=== PATIENT | male | born 1970 | race African-American/Black ===

== ENCOUNTER → 2020-04-15 | Outpatient (CLI) | payer BC | LOC: SJCVCIMAG 08:14 | PROVIDERS: ATTEND Internal Medicine | DX: I11.9 Hypertensive heart disease without heart failure (principal); I25.118 Atherosclerotic heart disease of native coronary artery with other forms of angina pectoris; E78.5 Hyperlipidemia, unspecified; Z95.5 Presence of coronary angioplasty implant and graft ==

== ENCOUNTER 2021-04-19 09:56 | Inpatient (IN) | payer BC ==
[~2021-04-19] VITALS: Ht 190.5 cm; Wt 113.9 kg
--- NOTE | ~2021-04-19 | EMS ---
[facility] [address] [place] [address] EMS Patient Care Report Name: GOYO NAVARRETE Room #: 219-P [facility] IN M.R.#: [id number] Admission: 04/19/21 Attend Phys: Slick Ledezma MD Discharge: 04/20/21 Date of : 68 Report #: [id number] THIS REPORT FOR: //name// Report Transmitted: 04/24/2021 11:06 EMS Care Summary [place], [place]/[facility] Incident [id number] @ 04/19/2021 09:02 Incident Location [address] [place] [address] [address] [place] [address] Patient GOYO NAVARRETE Male, 51 Years 1970 Patient Address [address] [place] [address] Patient History Hypertension (HTN),Cardiac - Stent, Patient Allergies No known allergies, Patient Medications Isosorbide, Valsartan, Amlodipine, Atorvastatin, Hydrochlorothiazide (Hctz), Metoprolol, Chief Complaint chest pain Disposition Transported No Lights/[place] Dispatch Reason Chest Pain (Non-Traumatic) Transported To [facility] Narrative 51 y/o male with chest pain [facility] [address] [place] [address] EMS Patient Care Report Name: GOYO NAVARRETE Room #: 219-P [facility] IN .Garry.#: [id number] Admission: 04/19/21 Attend Phys: Slick Ledezma MD Discharge: 04/20/21 Date of : 68 Report #: [id number] Upon arrival the pt was in a Dr. Office when they called 911 for continuing chest pain that has persisted for 2 days and currently HTN. The pt was sitting in the lobby by the front office assistant he is awake, conscious A&O x 4 with a GCS of 15. He has a patent airway, breathing is normal, and has a strong reg radial pulse. The pt states he has been having anterior substernal chest pressure for the last 2 days since mowing his yard. The pt has Hx of stents being. The pt currently is HTN. The pt states his chest pressure is a 6/10 on the pain scale. The pt ECG shows SR. The pt is hypertensive. The pt stood on his own and sat on the cot in a position of comfort, was secured to the cot and loaded into the ambulance. VS were obtained, ECG and 12 lead show SR, a 18 was placed in RAC, 324 mg of ASA given and 0.4 mg nitro given x 2 q 5 minutes for chest pain. Chest pain was reduced to a 2/10 with 2 nitro. D-99. The pt was transported to [facility] per the pt's request. The pt Initial Vitals @09:32P: 58, @09:25P: 56, @09:22P: 48, @09:25P: 55, @09:32P: 59, @09:23P: 61, @09:40P: 59,SpO2: 96, @09:40P: 60,BP: 174/94,SpO2: 93, @09:24P: 54,R: 14,BP: 192/108,Pain: 6/10,GCS: 15,SpO2: 99,Revised Trauma: 12,TN Suspected: false @09:23P: 57,TN Suspected: false Assessments @09:37MENTAL:Place Oriented,Time Oriented,Person Oriented,Event Oriented,SKIN:HEENT:Head/Face: No Abnormalities,Neck/Airway: No Abnormalities,LUNG SOUNDS:General: No Abnormalities,ABDOMEN:General: No Abnormalities,PELVIS//GI:No Abnormalities,EXTREMITIES:Capillary Refill: Left Upper: < 2 Sec,Capillary Refill: Right Upper: < 2 Sec,Left Arm: No Abnormalities,Right Arm: No Abnormalities,Left Leg: No Abnormalities,Right Leg: No Abnormalities,PULSE:Radial: 2+ Normal,NEURO:No Abnormalities, Impression Chest Pain / Discomfort Procedures @09:12ALS AssessmentResponse: UnchangedSucceeded@09:2312-Lead ECGResponse: UnchangedSucceeded@09:25Aspirin - 324 Milligrams (mg) - OralResponse: Improved@09:32Nitrostat - 0.4 Milligrams (mg) - SublingualResponse: Improved@09:37Nitrostat - 0.4 Milligrams (mg) - SublingualResponse: Improved@09:25Saline Lock 10cc (18 ga) Site: Antecubital-RightResponse: UnchangedSucceeded [address] [address] EMS Patient Care Report Name: GOYO NAVARRETE Room #: 219-P [facility] IN [facility]#: [id number] Admission: 04/19/21 Attend Phys: Slick Ledezma MD Discharge: 04/20/21 Date of : 68 Report #: [id number] Timeline 09:00,Call Received 09:00,Dispatch Notified 09:02,Dispatched 09:03,En Route 09:10,On Scene 09:11,At Patient 09:12,ALS Assessment,Response: UnchangedSucceeded, 09:22,BP: / M,PULSE: 48,RR: R,SPO2: Ox,ETCO2: ,BG: ,PAIN: ,GCS: , 09:23,BP: / M,PULSE: 61,RR: R,SPO2: Ox,ETCO2: ,BG: ,PAIN: ,GCS: , 09:23,12-Lead ECG,Response: UnchangedSucceeded, 09:23,BP: / M,PULSE: 57,RR: R,SPO2: Ox,ETCO2: ,BG: ,PAIN: ,GCS: , 09:24,BP: 192/108 M,PULSE: 54,RR: 14 R,SPO2: 99 Ox,ETCO2: ,BG: ,PAIN: 6,GCS: 15, 09:25,Saline Lock 10cc 18 ga Site: Antecubital-Right,Response: UnchangedSucceeded, 09:25,Aspirin - 324 Milligrams (mg) - Oral,Response: Improved 09:25,BP: / M,PULSE: 55,RR: R,SPO2: Ox,ETCO2: ,BG: ,PAIN: ,GCS: , 09:25,BP: / M,PULSE: 56,RR: R,SPO2: Ox,ETCO2: ,BG: ,PAIN: ,GCS: , 09:32,Nitrostat - 0.4 Milligrams (mg) - Sublingual,Response: Improved 09:32,BP: / M,PULSE: 59,RR: R,SPO2: Ox,ETCO2: ,BG: ,PAIN: ,GCS: , 09:32,BP: / M,PULSE: 58,RR: R,SPO2: Ox,ETCO2: ,BG: ,PAIN: ,GCS: , 09:35,Depart Scene 09:37,Nitrostat - 0.4 Milligrams (mg) - Sublingual,Response: Improved 09:40,BP: 174/94 M,PULSE: 60,RR: R,SPO2: 93 Ox,ETCO2: ,BG: ,PAIN: ,GCS: , 09:40,BP: / M,PULSE: 59,RR: R,SPO2: 96 Ox,ETCO2: ,BG: ,PAIN: ,GCS: , 09:53,At Destination 10:10,Call Closed Disclaimer v1.1 Copyright 2020 [employer] This EMS Care Summary contains data elements from the applicable legal record (which may be displayed differently). It is designed to provide pertinent information for the following purposes: continuity of care, clinical quality, and state data reporting. The complete legal record is available to ED staff and administrators of the receiving hospital in [employer] Patient Tracker. All data is provided "as is."
[2021-04-19 09:57] VITALS: BP 166/85
[2021-04-19] MEDS ORDERED: DIOVAN320 MG PO (10:04)
[2021-04-19] MEDS ORDERED: ISOSORBIDE DINI30 MG PO (10:04)
[2021-04-19] MEDS ORDERED: NORVASC5 MG PO (10:04)
[2021-04-19] MEDS ORDERED: LIPITOR80 MG PO (10:05)
[2021-04-19] MEDS ORDERED: HYDROCHLOROTHIA25 M1 PO (10:05)
[2021-04-19] MEDS ORDERED: TOPROL XL25 MG PO (10:05)
[2021-04-19] MEDS ORDERED: PROTONIX40 M2 PO (10:05)
[2021-04-19] MEDS ORDERED: CARVEDILOL12.5 MG PO (10:06)
[2021-04-19] MEDS ORDERED: BRILINTA60 MG PO (10:06)
[2021-04-19 10:27] LABS: ABSOLUTE NEUTROPHILS 2.4 thou/uL (1.4-8.2); BASOPHILS 0.4 % (0.0-2.0); HEMATOCRIT 40.7 % (42.0-52.0); HEMOGLOBIN 13.5 gm/dL (14.0-18.0); LYMPHOCYTES 37.9 % (24.0-44.0); MCH 29.5 pg (26.0-34.0); MCHC 33.2 g/dL (28.0-37.0); MCV 88.8 fL (80.0-100.0); MONOCYTES 10.4 % (1.0-8.0); PLATELET COUNT 347 thou/uL (150-400); POLYS 50.3 % (36.0-66.0); RBC 4.58 mil/uL (4.50-6.00); RDW 12.7 % (10.5-14.5); WBC 4.8 thou/uL (4.0-11.0)
[2021-04-19 10:46] LABS: CALCIUM 8.9 mg/dL (8.5-10.1); CREATININE 1.4 mg/dL (0.7-1.3); POTASSIUM 3.9 mmol/L (3.5-5.1)
[2021-04-19 11:57] VITALS: BP 157/81
[2021-04-19 12:14] VITALS: BP 152/81
[2021-04-19 12:45] VITALS: BP 163/82
[2021-04-19] MEDS ORDERED: ADULT ASPIRIN R81 MG PO (13:22)
[2021-04-19] MEDS ORDERED: FLOMAX0.4 MG PO (13:22)
[2021-04-19] MEDS ORDERED: VIAGRA25 MG PO (13:23)
[2021-04-19] MEDS ORDERED: ALLOPURINOL 10100 M3 PO (13:23)
--- NOTE | 2021-04-19 13:26 | NUR ---
patient admitted to ccu from ed for nstemi. plan to have cardiac cath done this afternoon. on heparin gtt. up ad etelvina in room, steady on feet. placed on monitor. currently rates chest pain at 2. keeping npo until procedure. all admission assessments complete.
[2021-04-19 15:40] LABS: APTT 27.9 Seconds (24.5-32.8); PROTIME 10.6 Seconds (9.3-11.4)
--- NOTE | 2021-04-19 16:36 | CATHLAB ---
[facility] [place] [address] INVASIVE PROCEDURE REPORT Name: GOYO NAVARRETE Room #: 219-P ADM IN M.R.#: [id number] Admission: 04/19/21 Attend Phys: Slick Ledezma MD Discharge: Date of : 68 Report #: [id number] THIS REPORT FOR: cc: FAM - Family physician unknown FAM - Family physician unknown Fahad Maria MD ~ APPROVED REPORT Study performed: 04/19/2021 14:47:37 Patient Details Patient Status: In-Patient Room #: 219 The patient is a 51 year-old male Event Personnel Fahad Maria Child Care Education Coordinator, Tanika Wen RN RN, Francisca Glass RTR, Francisco Javier Wright Ja'net RTR Monitor Procedures Performed Left Heart Cath w/or w/o Coronaries [id number] [facility] Art Access - R femoral artery* 28522 Initial Mod Sed Same Phys/QHP Gr5y 956553 Hemostasis with Manual pressure 70877 Mod Sed Same Phys/QHP Ea 354478 Indication Non-STEMI , Chest pain Risk Factors Hypercholesterolemia, Coronary Artery DiseaseHypertension Previous Procedures/Diagnoses Previous PCI, Previous OH Procedure Narrative The Right Groin^ was infiltrated with 1% Lidocaine subcutaneous anesthesia. A PINNACLE 4FR Sheath #[id number] sheath was inserted into the RFA^. Coronary angiography was performed using coronary diagnostic catheters. The right coronary system was accessed and visualized with a JR4 catheter. The left coronary system was accessed and visualized with a JLR catheter. The left ventricle was accessed and visualized with a PIGTAIL catheter. Hemostasis was obtained with manual pressure following sheath removal without any complications. The patient tolerated the procedure well and there were no complications associated with the procedure. There was no [facility] [place] [address] INVASIVE PROCEDURE REPORT Name: GOYO NAVARRETE Alysa Room #: 219-P [facility] IN [facility]#: [id number] Admission: 04/19/21 Attend Phys: Slick Ledezma MD Discharge: Date of : 68 Report #: [id number]. Intraoperative Conscious Sedation Sedation start time: 15:05 Case end Time: 15:52 Fentanyl 50 mcg Versed 1 mg Fluoro Time: 2.48 minutes Dose: DAP 5157.10 cGycm2 628 mGy Contrast Type and Amount: Visipaque 80 ml Coronary Angiography The patient's coronary anatomy is co- dominant. Diagnostic Cath Left Main The left main artery is a large-caliber vessel, with mild distal tapering. LAD The LAD is a moderate-sized caliber vessel, traverses the anterior wall and wraps around the apex. There is mild disease in the midsegment, 30%. The distal LAD tapers down to a small caliber vessel. The apical segment has severe diffuse disease and medical therapy is recommended. Diagonal 1 This is a moderate-sized caliber vessel, supplies several branches as it travels the anterolateral wall. The terminal branch is a small caliber vessel, with a borderline stenosis. Medical therapy is recommended. Diagonal 2 This is a small to moderate-sized caliber vessel, patent with no flow-limiting lesions. Circumflex The left circumflex artery is a codominant vessel. There is a long stent in the proximal segment, patent with mild restenosis. There are 2 OM branches originating from the distal left circumflex segment. OM1 This is a small to moderate-sized caliber vessel, patent with no flow-limiting lesions. OM2 This is a small caliber vessel, with a moderate proximal stenosis. Right Coronary The RCA has mild disease in the midsegment. R PDA This is a small to moderate-sized caliber vessel, patent with no flow-limiting lesions. Left Ventriculography The left ventricle is normal in size with normal contractility. The left ventricular ejection fraction is estimated to be 55-60%. Hemodynamics [facility] [address] [place] [address] INVASIVE PROCEDURE REPORT Name: GOYO NAVARRETE Alysa Room #: 219-P [facility] IN M.R.#: [id number] Admission: 04/19/21 Attend Phys: Slick Ledezma MD Discharge: Date of : 68 Report #: [id number] The aortic pressure is 170/85 mmHg with a mean of 118 mmHg. The left ventricular pressure is 171/10 mmHg with a mean of mmHg. The left ventricular end diastolic pressure is 24 mmHg. Conclusion 1. There is a patent stent in the proximal left circumflex artery with mild restenosis. 2. There is severe diffuse disease in the apical LAD segment, medical therapy is recommended. 3. There is a borderline stenosis in the distal segment of the first diagonal artery, medical therapy is recommended. 4. There is normal LV systolic function. 5. Recommend aggressive risk factor management and guideline directed medical therapy. <ELECTRONICALLY SIGNED> By: Fahad Maria MD 04/19/21 1636 1636 1636 Fahad Maria MD /INF
--- NOTE | 2021-04-19 16:56 | NUR ---
POST CATH, NO INTERVENTIONS. RIGHT GROIN SITE CDI. ARE SOFT. GAUZE DRESSING IN PLACE. POST OP VITALS AND GROIN CHECKS. PATIENT ON BEDREST UNTIL 1949. PATIENT USING URINAL AT BEDSIDE. IV FLUIDS INFUSING PER ORDERED.
[2021-04-19 19:28] VITALS: BP 149/73
[2021-04-20 04:58] VITALS: BP 125/77
--- NOTE | 2021-04-20 05:27 | NUR ---
ASSUMED PATIENT CARE AT 1900H.PATIENT IS ALERT AND ORIENTED X4.ON ROOM AIR BREATHING SPONTANEOUSLY.WITH RIGHT GROIN COVERED WITH DRESSING C/D/I, NO HEMATOMA NOTED FROM THE SITE.NOT IN PAIN OR DISTRESS.ALL NEEDS ATTENDED.
[2021-04-20 05:54] LABS: HEMATOCRIT 37.9 % (42.0-52.0); HEMOGLOBIN 13.1 gm/dL (14.0-18.0); MCH 30.4 pg (26.0-34.0); MCHC 34.5 g/dL (28.0-37.0); RBC 4.3 mil/uL (4.50-6.00); RDW 12.6 % (10.5-14.5); WBC 5.9 thou/uL (4.0-11.0)
[2021-04-20 06:28] LABS: ANION GAP 7 mmol/L (7-16); BUN 21 mg/dL (7-18); CALCIUM 8.8 mg/dL (8.5-10.1); CHLORIDE 106 mmol/L (98-107); CHOLESTEROL 149 mg/dL (<200); CO2 29 mmol/L (21-32); CREATININE 1.6 mg/dL (0.7-1.3); GLUCOSE 99 mg/dL (74-106); HDL CHOLESTEROL 34 mg/dL (>40); LDL CHOLESTEROL 94 mg/dL (<100); SODIUM 142 mmol/L (136-145); TC:HDL 4.4 Ratio (Not establshd); TRIGLYCERIDE 107 mg/dL (<150); VLDL 21 mg/dL (<40)
[2021-04-20 06:36] LABS: SERUM ASSESSMENT Clear
[2021-04-20 08:00] VITALS: BP 142/64
--- NOTE | 2021-04-20 08:16 | EKG ---
[address] [place] [address] ELECTROCARDIOGRAM REPORT Name: GOYO NAVARRETE Room #: 219-P ADM IN M.R.#: [id number] Admission: 04/19/21 Attend Phys: Slick Ledezma MD Discharge: Date of : 68 Report #: [id number] [facility] ED Test Date: 2021-04-19 Test Time: 09:57:18 Pat Name: GOYO NAVARRETE Department: Room: 219 P Gender: M Type Proof Reproducer: ALEXANDRA : 1970 Requested By: Slick Ledezma Order Number: [id number] : Neftali Herbert Measurements Intervals [place] Rate: 58 P: [place]: QRS: 43 QRSD: 94 T: 77 QT: 423 QTc: 416 Interpretive Statements NSR Abnormal T, consider ischemia, lateral leads ST elev, probable normal early repol pattern Compared to ECG 05/16/2005 08:45:33 T-wave abnormality now present Possible ischemia now present ST (T wave) deviation now present Early repolarization no longer present Electronically Signed On 04-20-2021 8:16:44 CDT by Neftali Herbert [email or web address] <ELECTRONICALLY SIGNED> By: Neftali Herbert MD, [facility] 04/20/21 0816 0957 Neftali Herbert MD, [facility] /EPI
--- NOTE | 2021-04-20 08:17 | EKG ---
[address] [address] ELECTROCARDIOGRAM REPORT Name: GOYO NAVARRETE Room #: 219-P ADM IN M.R.#: [id number] Admission: 04/19/21 Attend Phys: Slick Ledezma MD Discharge: Date of : 68 Report #: [id number] [facility] ED Test Date: 2021-04-19 Test Time: 10:14:16 Pat Name: GOYO NAVARRETE Department: Room: 219 P Gender: M Business Applications Manager: ALEXANDRA : 1970 Requested By: Slick Ledezma Order Number: [id number] : Neftali Herbert Measurements Intervals [place] Rate: 56 P: 71 NE: 172 QRS: 52 QRSD: 113 T: 87 QT: 406 QTc: 392 Interpretive Statements Sinus rhythm Borderline intraventricular conduction delay Abnormal T, consider ischemia, lateral leads Compared to ECG 04/19/2021 09:57:18 Atrial fibrillation no longer present T-wave abnormality still present Possible ischemia still present ST (T wave) deviation still present Electronically Signed On 04-20-2021 8:17:02 CDT by Neftali Herbert [email or web address] <ELECTRONICALLY SIGNED> By: Neftali Herbert MD, FACC 04/20/21 0817 1014 1014 Neftali Herbert MD, [facility] /EPI
[2021-04-20] MEDS ORDERED: CLOPIDOGREL75 MG PO (08:19)
[2021-04-20] MEDS ORDERED: ATORVASTATIN CA80 MG PO (08:19)
[2021-04-20] MEDS ORDERED: IMDUR 30 MG TAB30 M1 PO (08:19)
[2021-04-20] MEDS ORDERED: NORVASC5 MG PO (08:19)
[2021-04-20] MEDS ORDERED: METOPROLOL SUCC50 MG PO (08:19)
--- NOTE | 2021-04-20 11:08 | NUR ---
Assumed care of pt this AM. Pt is A&O X4 on RA. Pt denies any current chest pain. Pt up ad etelvina in the room. Plan to discharge today. SB on the monitor. Imjenniferr held this AM. Will continue to monitor pt needs throughout day.
[2021-04-20 11:35] VITALS: BP 142/64
[2021-04-20 12:05] VITALS: BP 142/64
== END 2021-04-20 14:19 | disposition home or self-care (01) | DRG 281 ==
LOC: ER 09:56 → EROBS 11:50 → 2N 11:50
PROVIDERS: Nurse Practitioner; Student in an Organized Health Care Education/Training Program; ADMIT Hospitalist; ATTEND Hospitalist
PROC: B211YZZ Fluoroscopy of Multiple Coronary Arteries using Other Contrast (ICD-10-PCS; principal; 2021-04-19)
PROC: 4A023N7 Measurement of Cardiac Sampling and Pressure, Left Heart, Percutaneous Approach (ICD-10-PCS; principal; 2021-04-19)
PROC: B215YZZ Fluoroscopy of Left Heart using Other Contrast (ICD-10-PCS; principal; 2021-04-19)
DX: I21.4 Non-ST elevation (NSTEMI) myocardial infarction (principal); N17.9 Acute kidney failure, unspecified; I25.10 Atherosclerotic heart disease of native coronary artery without angina pectoris; E66.9 Obesity, unspecified; Z20.822 Contact with and (suspected) exposure to COVID-19; E78.5 Hyperlipidemia, unspecified; I10 Essential (primary) hypertension; Z95.5 Presence of coronary angioplasty implant and graft; Z82.49 Family history of ischemic heart disease and other diseases of the circulatory system; Z68.31 Body mass index [BMI] 31.0-31.9, adult; Z79.82 Long term (current) use of aspirin; Z79.899 Other long term (current) drug therapy
CPT/HCPCS: 10081

== ENCOUNTER 2021-05-07 15:07 | Emergency (ER) | payer BC ==
[~2021-05-07] VITALS: Ht 190.5 cm; Wt 108.9 kg
[~2021-05-07 15:07] MED LIST: ADULT ASPIRIN R81 MG PO; ALLOPURINOL 10100 M3 PO; ATORVASTATIN CA80 MG PO; BRILINTA60 MG PO; CARVEDILOL12.5 MG PO; CLOPIDOGREL75 MG PO; DIOVAN320 MG PO; FLOMAX0.4 MG PO; HYDROCHLOROTHIA25 M1 PO; IMDUR 30 MG TAB30 M1 PO; ISOSORBIDE DINI30 MG PO; LIPITOR80 MG PO; METOPROLOL SUCC50 MG PO; NORVASC5 MG PO; PROTONIX40 M2 PO; TOPROL XL25 MG PO; VIAGRA25 MG PO
[2021-05-07] MEDS ORDERED: ASA81BEC PO (15:18)
[2021-05-07] MEDS ORDERED: IMDUR 60 MG TAB60 M1 PO (15:19)
[2021-05-07] MEDS ORDERED: VIAGRA25 MG PO (15:21)
[2021-05-07 15:32] LABS: ABSOLUTE NEUTROPHILS 6.4 thou/uL (1.4-8.2); BASOPHILS 0.6 % (0.0-2.0); EOSINOPHILS 1.1 % (0.0-3.0); HEMATOCRIT 37.5 % (42.0-52.0); HEMOGLOBIN 12.7 gm/dL (14.0-18.0); LYMPHOCYTES 13.1 % (24.0-44.0); MCH 30.1 pg (26.0-34.0); MCHC 33.8 g/dL (28.0-37.0); MCV 89.1 fL (80.0-100.0); MONOCYTES 7.4 % (1.0-8.0); PLATELET COUNT 363 thou/uL (150-400); POLYS 77.8 % (36.0-66.0); RBC 4.21 mil/uL (4.50-6.00); RDW 12.9 % (10.5-14.5); WBC 8.2 thou/uL (4.0-11.0)
[2021-05-07 15:37] LABS: CALCIUM 8.9 mg/dL (8.5-10.1); CREATININE 1.6 mg/dL (0.7-1.3)
[2021-05-07 15:47] LABS: TOTAL BILIRUBIN 0.9 mg/dL (0.2-1.0); TOTAL PROTEIN 7.7 g/dL (6.4-8.2)
[2021-05-07 18:22] VITALS: BP 137/58
--- NOTE | 2021-05-08 07:33 | EKG ---
[place] [address] [place] [address] ELECTROCARDIOGRAM REPORT Name: JACOBO NAVARRETEGladys Watt [id number] Admission: 05/07/21 Attend Phys: Discharge: 05/07/21 Date of : 68 Report #: [id number] [facility] ED Test Date: 2021-05-07 Test Time: 15:10:21 Pat Name: GOYO NAVARRETE Department: Room: Gender: M Gear Lapper: Garry NEWELL : 1970 Requested By: Keisha Alcala Order Number: [id number] MD: Neftali Herbert Measurements Intervals [place] Rate: 53 P: 69 NE: 165 QRS: 59 QRSD: 89 T: 75 QT: 414 QTc: 389 Interpretive Statements Sinus rhythm Nonspecific T abnormalities, lateral leads ST elev, probable normal early repol pattern Compared to ECG 04/19/2021 10:14:16 ST (T wave) deviation now present Possible ischemia no longer present T-wave abnormality still present Electronically Signed On 05-08-2021 7:33:27 CDT by Neftali Herbert [email or web address] <ELECTRONICALLY SIGNED> By: Neftali Herbert MD, FACC 05/08/21 0733 09 09 Neftali Herbert MD, [facility] /EPI
== END 2021-05-07 18:23 | disposition home or self-care (01) ==
LOC: ER 15:07
PROVIDERS: Nurse Practitioner Family
DX: R07.89 Other chest pain (principal); Z20.822 Contact with and (suspected) exposure to COVID-19; L50.9 Urticaria, unspecified; I10 Essential (primary) hypertension; E78.5 Hyperlipidemia, unspecified; I25.10 Atherosclerotic heart disease of native coronary artery without angina pectoris; I25.2 Old myocardial infarction; Z79.891 Long term (current) use of opiate analgesic; Z79.899 Other long term (current) drug therapy; Z79.1 Long term (current) use of non-steroidal anti-inflammatories (NSAID); Z79.82 Long term (current) use of aspirin

== ENCOUNTER 2021-05-10 19:35 | Inpatient (IN) | payer BC ==
[~2021-05-10] VITALS: Ht 190.5 cm; Wt 108.9 kg
[~2021-05-10 19:35] MED LIST changes: +ASA81BEC PO; +IMDUR 60 MG TAB60 M1 PO
[2021-05-10 19:50] VITALS: BP 175/87
[2021-05-10 20:22] LABS: BASOPHILS 0.7 % (0.0-2.0); EOSINOPHILS 0.1 % (0.0-3.0); HEMATOCRIT 41.7 % (42.0-52.0); HEMOGLOBIN 13.9 gm/dL (14.0-18.0); MCH 30.1 pg (26.0-34.0); MCHC 33.3 g/dL (28.0-37.0); MCV 90.4 fL (80.0-100.0); MONOCYTES 6.1 % (1.0-8.0); PLATELET COUNT 410 thou/uL (150-400); POLYS 74.1 % (36.0-66.0); RBC 4.62 mil/uL (4.50-6.00); RDW 13.6 % (10.5-14.5); WBC 9.4 thou/uL (4.0-11.0)
[2021-05-10 20:33] LABS: CALCIUM 8.4 mg/dL (8.5-10.1); CREATININE 1.7 mg/dL (0.7-1.3); POTASSIUM 4.1 mmol/L (3.5-5.1)
[2021-05-10 20:43] LABS: ALBUMIN 3.7 g/dL (3.4-5.0); TOTAL BILIRUBIN 0.9 mg/dL (0.2-1.0); TOTAL PROTEIN 7.2 g/dL (6.4-8.2)
[2021-05-10 23:38] VITALS: BP 149/75
[2021-05-11 00:04] VITALS: BP 168/75
--- NOTE | 2021-05-11 03:16 | NUR ---
PT ARRIVED FROM ER. A&OX4. C/O ITCHING IN HANDS. 2+ EDEMA NOTED ON BOTH HAMDS AND TENDER TO TOUCH. BENADRLY GIVEN. IV STERIOD GIVEN FOR SWELLING. IV INTACT AND FLUID INFUSING. PT NPO WITH ICE CHIPS ONLY. PER REPORT FORM ER PT C/O N/V. PT UP AD KARL TO THE BATHROOM. ADMISSION DONE AND PT ORIENTED TO THE UNIT. CALL LIGHT AT REACH AND WILL CONT TO MONITOR.
[2021-05-11 04:17] VITALS: BP 140/72
[2021-05-11 06:46] LABS: CALCIUM 8.3 mg/dL (8.5-10.1); CREATININE 1.6 mg/dL (0.7-1.3); POTASSIUM 4.3 mmol/L (3.5-5.1)
--- NOTE | 2021-05-11 07:24 | EKG ---
[address] [place] [address] ELECTROCARDIOGRAM REPORT Name: JACOBO NAVARRETEGladys Watt Room #: 364-P ADM IN M.R.#: [id number] Admission: 05/10/21 Attend Phys: Klaudia Kam MD Discharge: Date of : 68 Report #: [id number] [facility] ED Test Date: 2021-05-10 Test Time: 20:30:47 Pat Name: GOYO NAVARRETE Department: Room: 364 Gender: M Preparole Counseling Aide: miquel : 1970 Requested By: Tyrell Musa Order Number: [id number] MD: Neftali Herbert Measurements Intervals [place] Rate: 61 P: 71 [place]: 147 QRS: 45 QRSD: 82 T: 80 QT: 417 QTc: 420 Interpretive Statements Sinus rhythm Probable left atrial enlargement Anteroseptal infarct, age indeterminate Compared to ECG 05/07/2021 15:10:21 Myocardial infarct finding now present T-wave abnormality no longer present ST (T wave) deviation no longer present Electronically Signed On 05-11-2021 7:23:59 CDT by Neftali Herbert [email or web address] <ELECTRONICALLY SIGNED> By: Neftali Herbert MD, FACC 05/11/21 0723 2030 29 Neftali Herbert MD, [facility] /EPI
[2021-05-11 07:39] VITALS: BP 162/84
[2021-05-11 11:53] VITALS: BP 167/87
--- NOTE | 2021-05-11 14:25 | NUR ---
ORDERS FOR EVAL AND TREAT. SPOKE TO Pt WHO STATES HE HAS BEEN GETTING UP WITHOUT DIFFICULTY AND NOT HAVING ANY ISSUES WITH MOBILITY. Pt DECLINING FORMAL P.T. EVAL BUT PER NURSING NOTES, Pt IS UP AD KARL CONFIRMING WHAT Pt IS TELLING THIS THERAPIST. WILL BE AVAILABLE FOR A FORMAL P.T. EVAL IF Pt STARTS TO HAVE DIFFICULTY WITH MOBILITY.
--- NOTE | 2021-05-11 15:15 | NUR ---
INITIAL ASSESSMENT; Received consult. SW reviewed chart and spoke with nursing and attending physician. Pt was admitted from home due to an allergic reaction. Pt is on IV steorids. Pt is alert/orientated x 4 and lives at home with his . Pt is independent with ADLs. Pt is ad etelvina up in his room. Pt's systems spec is Dr. Salazar. Plan is for pt to discharge home when medically stable. MONE is following to assist as needed with discharge planning.
[2021-05-11 17:16] VITALS: BP 178/92
[2021-05-11 20:03] VITALS: BP 169/86
--- NOTE | 2021-05-11 23:25 | NUR ---
ASSESSED AT START OF SHIFT. PT RESTING IN BED. IV INTACT AND FLUIDS INFUSING. PT UP AD KARL TO THE BATHROOM NO DIFICULTY. IV STERIOD AND BENADRLY GIVEN. WILL CONT TO MONITOR.
[2021-05-12 00:07] VITALS: BP 162/88
[2021-05-12 05:18] VITALS: BP 164/82
[2021-05-12 07:58] VITALS: BP 152/82
[2021-05-12 12:11] VITALS: BP 169/93
--- NOTE | 2021-05-12 14:09 | NUR ---
DISCHARGE NOTE: MONE reviewed chart and spoke with nursing and attending physician. Pt is medically stable to discharge home today. Awaiting final discharge orders at this time. No discharge needs identified. Pt's family to provide transportation home when medically stable. SW is available to assist should needs arise.
[2021-05-12] MEDS ORDERED: AMLODIPINE BESY10 MG PO (15:14)
[2021-05-12] MEDS ORDERED: DIPHENHIST50 MG PO (15:14)
[2021-05-12] MEDS ORDERED: PEPCID20 MG PO (15:14)
[2021-05-12] MEDS ORDERED: EPIPEN0.3 MG/0.1 IM (15:14)
[2021-05-12] MEDS ORDERED: PREDNISONE 20 M20 M1 PO (15:14)
[2021-05-12 15:33] VITALS: BP 169/93
[2021-05-12 15:41] VITALS: BP 168/84
--- NOTE | 2021-05-12 16:44 | NUR ---
CARE ASSUMED THIS AM, PT ALERT AND ORIENTED X4. ROOM AIR, DENIES ANY SOB. PT WAS PLACED BACK ON AMLODIPINE, GAVE PT OP MED. NO REACTION NOTED 1600 DISCHARGE ORDER IN. INSTRUCTIONS ABOUT DISCHARGE WENT THROUGH WITH. PT AWARE ABOUT OUTPT APPTS AND NEW MEDS INFO. SCRIPTS GIVEN TO PT. DENIES ANY QUESTIONS. IV AND TELE D/C. ALL BELONGINGS WITH. PT TAKEN DOWN VIA WC.
== END 2021-05-12 16:57 | disposition home or self-care (01) | DRG 916 ==
LOC: ER 19:35 → 3W 22:21 → EROBS 22:21 → 3W 23:49
PROVIDERS: Emergency Medicine; Nurse Practitioner Family; ADMIT Internal Medicine; ATTEND Internal Medicine
DX: T78.04XA Anaphylactic reaction due to fruits and vegetables, initial encounter (principal); T78.3XXA Angioneurotic edema, initial encounter; Z20.822 Contact with and (suspected) exposure to COVID-19; E66.01 Morbid (severe) obesity due to excess calories; I10 Essential (primary) hypertension; I25.10 Atherosclerotic heart disease of native coronary artery without angina pectoris; E78.5 Hyperlipidemia, unspecified; I25.2 Old myocardial infarction; Z88.8 Allergy status to other drugs, medicaments and biological substances; Z95.5 Presence of coronary angioplasty implant and graft; Z68.30 Body mass index [BMI] 30.0-30.9, adult; Z79.82 Long term (current) use of aspirin; Z79.899 Other long term (current) drug therapy
CPT/HCPCS: 10879